=== PATIENT | female | born 1990 | race Caucasian/White ===

== ENCOUNTER 2016-09-17 11:36 | Observation (INO) | payer MEDICAID ==
[~2016-09-17] VITALS: Ht 162.6 cm; Wt 80.7 kg
[2016-09-17] MEDS ORDERED: PREN-380 PO (11:49)
[2016-09-17 11:54] VITALS: BP 120/75
== END 2016-09-17 12:35 | disposition home or self-care (01) ==
LOC: MLD 11:36
PROVIDERS: ADMIT Obstetrics & Gynecology; ATTEND Obstetrics & Gynecology
DX: O26.899 Other specified pregnancy related conditions, unspecified trimester (principal); M54.9 Dorsalgia, unspecified; R10.9 Unspecified abdominal pain; Z3A.00 Weeks of gestation of pregnancy not specified
CPT/HCPCS: G0378; G0379